=== PATIENT | male | born 1945 | race Caucasian/White ===

== ENCOUNTER 2017-04-27 22:55 | Emergency (ER) | payer MEDICARE ==
[2017-04-27 23:55] LABS: #Basophils 0.1 thou/uL (0.0-0.2); #Eosinphils 0.2 thou/uL (0.0-0.7); #Lymphocytes 1.9 thou/uL (1.20-3.40); #Monocytes 0.8 thou/uL (0.11-0.59); #Neutrophils 8.4 thou/uL (1.40-6.50); %Basophils 0.8 % (0.0-1.0); %Eosinophils 1.4 % (0.0-10.0); %Lymphocytes 16.8 % (21.0-51.0); %Monocytes 7.1 % (0.0-10.0); Hemoglobin 15.5 g/dL (14.0-18.0); Mean Corpuscular HGB CONC 33.7 g/dL (32.0-36.0); Mean Corpuscular Hemoglobin 31.6 pg (27.0-31.0); Mean Platelet Volume 7.9 fL (7.4-10.4); Platelet Count 299 thou/uL (130-400); RBC Distribution Width 11.3 % (11.5-14.5); Red Blood Cell (RBC) Count 4.92 mill/uL (4.70-6.10); White Blood Cell (WBC) Count 11.3 thou/uL (4.8-10.8)
[2017-04-28] MEDS ORDERED: Fluorescein Opthalmic Strip ONE
[2017-04-28 00:03] LABS: Prothrombin Time 13.1 SEC (12.0-14.7)
[2017-04-28 00:04] LABS: PTT 31.6 SEC (22.9-36.1)
[2017-04-28 00:17] LABS: ALT (SGPT) 31 U/L (8-55); AST (SGOT) 23 U/L (5-34); Albumin 4.3 g/dL (3.4-4.8); Alkaline Phosphatase 73 U/L (40-150); Anion Gap 11 mmol/L (10-20); BUN (Urea Nitrogen) 14 mg/dL (8.4-25.7); Bilirubin, Total 0.4 mg/dL (0.2-1.2); Calc. Creatinine Clearance 0 mL/min (70-130); Calcium 9.3 mg/dL (7.8-10.44); Carbon Dioxide 28 mmol/L (23-31); Chloride 103 mmol/L (98-107); Estimated GFR-MDRD 69; Globulin 2.9 g/dL (2.4-3.5); Glucose 103 mg/dL (80-115); Potassium 4.2 mmol/L (3.5-5.1); Protein, Total 7.2 g/dL (5.8-8.1); Sodium 138 mmol/L (136-145)
[2017-04-28 00:19] LABS: CKMB 0.9 ng/mL (0-6.6); Troponin I Less than 0.010 ng/mL (< 0.028)
--- NOTE | 2017-04-28 07:28 | RAD ---
FRONTAL VIEW CHEST SERIES: INDICATION: Blurred vision, altered mental status. FINDINGS: The lungs are hyperinflated and lucent. Cardiac silhouette is upper limits of normal in size. There is vascular calcification and osseous degenerative change. IMPRESSION: Chronic obstructive pulmonary disease. POS: [facility]
--- NOTE | 2017-04-28 07:33 | CT ---
HEAD CT NONCONTRAST: INDICATION: Altered left side vision, hypertension. FINDINGS: There is no intracranial hemorrhage, mass effect, midline shift, or ventriculomegaly. There is mild chronic microvascular ischemic disease. No acute fluid levels of the imaged paranasal sinuses. IMPRESSION: No acute intracranial hemorrhage or mass effect. POS: [facility]
--- NOTE | 2017-05-04 17:05 | EKG ---
Test Reason : FACILITATE DIAGNOSIS Blood Pressure : / mmHG Vent. Rate : 068 BPM Atrial Rate : 068 BPM P-R Int : 124 ms QRS Dur : 078 ms QT Int : 388 ms P-R-T Axes : 070 050 069 degrees QTc Int : 412 ms Normal sinus rhythm Possible Left atrial enlargement Borderline ECG Confirmed by ANABEL HERNANDEZ D.O. ([id number]), medical editor ROSALIE DANIELS ([id number] on 05/04/2017 5:04:26 PM Referred By: Confirmed By:ANABEL HERNANDEZ D.O.
== END 2017-04-28 00:50 | disposition home or self-care (01) ==
LOC: ERS 22:55
DX: S05.02XA Injury of conjunctiva and corneal abrasion without foreign body, left eye, initial encounter (principal); I10 Essential (primary) hypertension; Z87.891 Personal history of nicotine dependence; F41.9 Anxiety disorder, unspecified; Z79.899 Other long term (current) drug therapy; X58.XXXA Exposure to other specified factors, initial encounter
CPT/HCPCS: 36415; 70450; 71045; 80053; 82553; 84484; 85025; 85610; 85652; 85730; 86140; 93005